=== PATIENT | male | born 1980 | race Caucasian/White ===

== ENCOUNTER 2023-02-20 13:45 | Emergency (ER) | payer BC ==
[~2023-02-20] VITALS: Ht 193 cm; Wt 99.8 kg
[2023-02-20] MEDS ORDERED: Motrin,Rufen800 MG PO (15:36)
== END 2023-02-20 17:47 | disposition home or self-care (01) ==
LOC: ED 13:45
DX: S93.401A Sprain of unspecified ligament of right ankle, initial encounter (principal); M25.461 Effusion, right knee; W01.10XA Fall on same level from slipping, tripping and stumbling with subsequent striking against unspecified object, initial encounter; Y93.01 Activity, walking, marching and hiking; Y92.009 Unspecified place in unspecified non-institutional (private) residence as the place of occurrence of the external cause; Y99.8 Other external cause status

== ENCOUNTER → 2023-02-26 | Outpatient (CLI) | payer BC ==
[~2023-02-26] MED LIST: Motrin,Rufen800 MG PO
== END | disposition home or self-care (01) ==
LOC: MRI 03:56
PROVIDERS: ATTEND Orthopaedic Surgery
DX: S83.241A Other tear of medial meniscus, current injury, right knee, initial encounter (principal); S82.291A Other fracture of shaft of right tibia, initial encounter for closed fracture; S83.411A Sprain of medial collateral ligament of right knee, initial encounter; M25.561 Pain in right knee; M25.461 Effusion, right knee; R60.9 Edema, unspecified; M25.861 Other specified joint disorders, right knee; X58.XXXA Exposure to other specified factors, initial encounter; Y93.89 Activity, other specified; Y92.89 Other specified places as the place of occurrence of the external cause; Y99.8 Other external cause status

== ENCOUNTER 2024-06-06 22:07 | Emergency (ER) | payer MEDICAID ==
[~2024-06-06] VITALS: Ht 193 cm; Wt 117.9 kg
[2024-06-06 22:54] LABS: BASO % 0.2 % (0.0-1.0); EOS # 0.4 10*3/uL (0.0-0.4); EOS % 4.3 % (1.0-4.0); HEMATOCRIT 44.2 % (42.0-52.0); MEAN CELL VOLUME 86.3 fl (80.0-94.0); MEAN CORPUSCULAR HGB 28.5 pg (27.0-31.0); MEAN PLATELET VOLUME 11.6 fl (9.6-12.3); MONO # 0.6 10*3/uL (0.1-1.0); MONO % 6.9 % (3.0-9.0); NEUT # 5.8 10*3/uL (2.3-7.9); PLATELET COUNT AUTOMATED 173 10*3/uL (130-400); RED BLOOD COUNT 5.12 10*6/uL (4.50-5.90); RED CELL DISTRI WIDTH 13.3 % (0-14.5); WHITE BLOOD COUNT 8.2 10*3/uL (4.8-10.8)
[2024-06-06 23:12] LABS: BUN 13 mg/dl (9-23); CHLORIDE 106 mmol/L (98-107); POTASSIUM 4.1 mmol/L (3.4-5.1); URIC ACID 6.6 mg/dL (3.7-9.2)
[2024-06-06] MEDS ORDERED: Dexamethasone Sodium Phospha 20 MG/5 ML VIAL IM ONE (23:15)
== END 2024-06-07 02:01 | disposition left against medical advice (07) ==
LOC: ED 22:07
PROVIDERS: Internal Medicine
DX: M25.561 Pain in right knee (principal); R22.41 Localized swelling, mass and lump, right lower limb; Z53.29 Procedure and treatment not carried out because of patient's decision for other reasons

== ENCOUNTER 2024-12-23 08:26 | Emergency (ER) | payer MEDICAID ==
[~2024-12-23] VITALS: Ht 193 cm; Wt 108.9 kg
[2024-12-23] MEDS ORDERED: AMOXICILLIN500 M2 PO (09:21)
== END 2024-12-23 09:25 | disposition home or self-care (01) ==
LOC: ED 08:26
DX: H66.93 Otitis media, unspecified, bilateral (principal)